=== PATIENT | female | born 1980 | race Caucasian/White ===

== ENCOUNTER → 2016-07-31 | Day surgery (SDC) | payer BC ==
[~2016-07-31] MED LIST: ACETAMINOPHEN 1000 MG/100 ML VIAL IV ONE; BUPIVACAINE/EPINEPHRINE 0.25% PF 30 ML VIAL ONE; KETOROLAC TROMETHAMINE 30 MG/ML (IVP) VIAL IV PUSH ONE; LACTATED RINGER'S 1000 ML INJ 1,000 ML ONE; LIDOCAINE 1%/EPINEPHrine 1:100,000 SOLN 20 ML VIAL ONE; LORazepam 2 MG/ML VIAL ONE; MEPERIDINE HCL 25 MG/ML VIAL ONE; MIDAZOLAM HCL 2 MG/2 ML VIAL ONE; MORPHINE SULFATE 4 MG/ML INJ ONE; NEOMYCIN/POLYMYXIN/BACITRACIN OINT 15 GM TUBE ONE; ONDANSETRON HCL 4 MG/2 ML VIAL IV PUSH ONE; PERC5TAB12 PO; PRENCAP6 OR; PROPOFOL 200 MG/20 ML AMP IV ONE; VANCOMYCIN HCL 1000 MG VIAL ONE; ceFAZolin INJ 1,000 MG VIAL ONE
--- NOTE | 2016-07-31 10:48 | MP ---
cc: BENITA GARZA M.D., JOHN B. M.D. DATE OF SURGERY: 07/31/2016 PROCEDURE Umbilical hernia repair with mesh. PREOPERATIVE DIAGNOSIS Symptomatic umbilical hernia. POSTOPERATIVE DIAGNOSIS Symptomatic umbilical hernia, reducible. ANESTHESIA LMA. SURGEON George ESTIMATED BLOOD LOSS Less than 30 mL. FLUIDS 1050 mL crystalloid. COMPLICATIONS None. DRAINS None. SPECIMEN None. PROCEDURE IN DETAIL The patient was taken to the operating room and placed on the operating table in the supine position. After an adequate level of laryngeal mask anesthesia was instituted the abdomen was prepped and draped in the usual fashion. A timeout was taken confirming the correct patient, site and procedure to be performed. A transverse incision was made below the umbilicus and dissection carried down to the umbilical hernia. The umbilical skin was cut free from the hernia sac and at this point the hernia was seen to be approximately 2 cm in diameter. This was freed up from the surrounding fascial edges and a small preperitoneal fatty slip was noted inferiorly. This was taken down and the fascia opened slightly inferiorly. The surgeon's finger was placed inside the defect and revealed very thin fascia on at least 270 degrees around the patient's defect. Inferiorly, the fascia was quite robust; however, superiorly and laterally on both sides, the fascia was somewhat weak. It was felt the patient was best served by a mesh repair and following this an [address] mesh was selected. At this point dissection was carried out in the preperitoneal plane and peritoneum was closed with 3-0 Vicryl suture. One small peritoneal opening was also closed with interrupted 3-0 Vicryl suture. This allowed for placement of the mesh in a preperitoneal plane but retrofascial. The mesh was placed into this plane and then transfixed at multiple points with 0 Prolene suture. When this was completed the fascia was closed over the mesh with #1 Prolene suture in a longitudinal simple interrupted fashion. The umbilical skin was tacked down to the fascia and 30 mL of 0.25% Marcaine with epinephrine was injected into the fascia. The wound was then closed with interrupted 3-0 Vicryl suture and the skin closed with 5-0 PDS in a running subcuticular fashion. The wound was dressed with a Steri-Strip and antibiotic ointment and a 4x4 applied to the umbilicus. A Tegaderm was applied over this and air aspirated. An abdominal binder was applied. Sponge, needle and instrument counts were reported to be correct. The patient was extubated and taken back to the recovery room in stable condition. She tolerated the procedure well. MD AUSTIN Jasmine/ANTON /10:37 AM /10:42 AM
== END | disposition home or self-care (01) ==
LOC: ESDC 06:40
PROVIDERS: ATTEND Surgery Trauma Surgery
DX: K42.9 Umbilical hernia without obstruction or gangrene (principal)
CPT/HCPCS: 00750; 49585; C1781; J0131; J0690; J1885; J2060; J2175; J2250; J2270; J2405; J3010; J3370; J7120